=== PATIENT | male | born 1965 | race Caucasian/White ===

== ENCOUNTER 2020-09-16 02:57 | Emergency (ER) | payer OTHER, SELFPAY ==
--- NOTE | ~2020-09-16 | US_ITS ---
EXAMINATION: US ABDOMEN LIMITED CLINICAL INFORMATION: Upper quadrant pain radiating into the back. COMPARISON: None TECHNIQUE: Real-time imaging of the right upper quadrant abdominal viscera. FINDINGS: PANCREAS: Not well seen due to overlying bowel gas. LIVER: The liver is normal in size. The liver contour is normal. Minimally increased hepatic parenchymal echogenicity, which can be seen in the setting of mild steatosis. Underlying hepatocellular disease cannot be excluded. No focal hepatic lesion. There is no intrahepatic biliary duct dilatation seen. GALLBLADDER: Mildly distended and completely opacified with sludge and stones. No significant gallbladder wall thickening or pericholecystic free fluid to suggest acute cholecystitis. Negative sonographic Wallace's sign. COMMON BILE DUCT: Normal in caliber measuring 0.3 cm in diameter. RIGHT KIDNEY: Simple midpole cyst measuring 1.2 cm. No dedicated followup imaging recommended. No hydronephrosis. No renal calculi or focal parenchymal lesions. The kidney measures 11.3 cm in maximum dimension. FREE FLUID: None. US/US abdomen limited IMPRESSION: 1. Minimally increased hepatic parenchymal echogenicity, which can be seen in the setting of mild steatosis. Underlying hepatocellular disease cannot be excluded. No focal hepatic parenchymal lesion or biliary ductal dilatation. 2. Gallbladder mildly distended and completely opacified with sludge and stones. No wall thickening or pericholecystic free fluid to suggest acute cholecystitis. Negative sonographic Wallace's sign. 3. Simple right midpole renal cyst measuring 1.2 cm. No dedicated followup imaging recommended.
[2020-09-16 03:56] VITALS: BP 166/92; PULSE 58; RESP 18; TEMP 36.7; O2SAT 98; BMI 27.1
[2020-09-16 04:00] VITALS: BP 150/98; PULSE 63; RESP 18; TEMP 36.9; O2SAT 97
[2020-09-16 04:12] LABS: Glucose Urine UA NEG (NEG); Leukocyte Esterase Urine NEG (NEG); Nitrite Urine NEG (NEG); PH 5.5 (5.0-8.0); Specific Gravity - Urine >= 1.030 (1.005-1.025); Urine Blood NEG (NEG); Urine Ketones NEG (NEG); Urine Protein NEG (NEG-TRACE)
[2020-09-16 04:37] LABS: Appearance Urine CLEAR; Color Urine YELLOW
[2020-09-16 04:51] LABS: MANUAL DIFF FLAG NO
[2020-09-16 04:53] LABS: Basophils Percent Auto 0.3 % (0-2); Eosinophils Percent Auto 0.5 % (0-4); Hematocrit 40.7 % (42-52); Hemoglobin 14.2 g/dl (14.0-18.0); Imm Gran Abs Auto 0.03 X10*3/uL (0.00-0.03); Imm Gran Pct Auto 0.5 % (0.0-0.4); Lymphocytes Absolute Auto 0.8 X10*3/uL (1.2-4.9); Lymphocytes Percent Auto 13.2 % (20-40); Mean Corpuscular HGB Conc 34.9 g/dl (31.0-36.0); Mean Corpuscular Hemoglobin 31.4 pg (27.0-33.0); Monocytes Absolute Auto 0.3 X10*3/uL (0.1-1.2); Monocytes Percent Auto 4.6 % (2-11); Neutrophils Percent Auto 80.9 % (45-73); Platelet Count 103 X10*3/uL (160-400); Red Blood Count 4.52 X10*6/uL (4.60-5.80); Red Cell Distribution Width 12.6 % (11.0-16.0); White Blood Count 6.1 X10*3/uL (4.8-10.8)
[2020-09-16 05:16] LABS: Alanine Aminotransferase 13 U/L (0-40); Albumin Level 4.3 g/dL (3.5-5.0); Alkaline Phosphatase 105 U/L (39-117); Anion Gap 16 (12-20); Aspartate Amino Transferase 11 U/L (5-37); Bilirubin Total 1.1 mg/dL (0.0-1.0); Blood Urea Nitrogen 22 mg/dL (9-16); Carbon Dioxide 23 mmol/L (22-29); Chloride 103 mmol/L (96-108); Creatinine Clr Calc Pharmacy 80.1; Estimated Glomerular Filt Rate > 60; Glucose Fasting 154 mg/dL (60-99); Potassium 3.8 mmol/L (3.3-5.1); Sodium 138 mmol/L (135-145); Total Protein 6.5 g/dL (6.5-8.0)
--- NOTE | 2020-09-16 06:38 | ED_ITS ---
HPI - Abdominal Pain General Chief Complaint: Abdominal Pain Stated Complaint: Abd pain Time Seen by Provider: 09/16/20 06:38 Source: patient Mode of arrival: ambulatory Limitations: no limitations History of Present Illness HPI narrative: Starting have holiday dinner around 4pm and got RUQ pain radiating to right shoulder MD elicited complaint: abdominal pain Pertinent past history: none Onset (ago): hour(s) Pain Consistency: intermittent Location: RUQ Severity: moderate Quality: aching Radiation: back (right shoulder) Exacerbating factors: eating Relieving factors: nothing Associated symptoms: nausea Related Data Previous Rx's Medication Instructions Recorded ondansetron HCl [Zofran] 4 mg PO Q8H PRN #10 tab 09/16/20 pantoprazole [Protonix] 40 mg PO DAILY #14 tab 09/16/20 Allergies Allergy/AdvReac Type Severity Reaction Status Date / Time Penicillins [PENICILLINS] Allergy Severe Unknown Verified 09/16/20 03:13 Review of Systems Constitutional: Reports no additional constitutional complaints Eyes: Reports no additional eye complaints Denies dizziness Cardiovascular: Reports no additional cardiovascular complaints Respiratory: Reports as per HPI Gastrointestinal: Reports no additional gastrointestinal complaints Musculoskeletal: Reports no additional musculoskeletal complaints Skin/Breast: Denies rash Reports system reviewed and no additional complaints, except as documented, Denies dizziness and Denies Sensory deficit (Neuro) Psychiatric: Denies anxiety Physical Exam Vital Signs: Vital Signs: Last Vital Signs Temp 98.5 F 09/16/20 04:00 Pulse 63 09/16/20 04:00 Resp 18 09/16/20 04:00 BP 150/98 H 09/16/20 04:00 Pulse Ox 97 09/16/20 04:00 Body Mass Index 27.1 Const: General: healthy appearing Nutritional Appearance: average body habitus Orientation/consciousness: oriented to person and patient oriented x3 Limitations: no limitations HENMT: Head: Yes normal to inspection Ears: external ears normal General nose exam: Normal external nose present Mouth: Normal oral and palatal mucosa present and oropharynx normal Throat: Yes posterior oropharynx normal Eyes: General: appearance normal, both eyes and all related structures Neck: Other: supple Neck: Yes normal visual inspection Chest: Chest palpation & inspection: normal inspection of the chest Resp: Auscultation: clear to auscultation bilaterally Cardio: Jugular venous distension: no JVD Rate: regular rate Rhythm: regular rhythm Heart sounds: S1 normal heart sound present and S2 normal heart sound present GI: Other: soft abdomen with right upper quadrant with pain and guarding. Inspection: Yes normal to inspection Auscultation: normal bowel sounds : General: Yes no CVA tenderness Back/Spine/Pelvis: Back: no CVA tenderness Skin: General skin exam: no rashes or lesions noted Neuro: General: oriented to person and patient oriented x3 Cranial nerves: Yes CN's II-XII intact bilaterally Motor exam (neuro): 5/5 motor strength present throughout Sensory Exam: No Sensory deficit (Neuro) Extrem: General: Yes normal to inspection Psych: Appearance: grossly normal Course Course Course Narrative: unofficial bedside US show enlarged GB with sludge will obtain offiicial US Reevaluation(s) Reevaluation #1: Discusswed with Dr. Alarcon will send to office Time: 09:47 MDM - Abdominal Pain MDM Narrative Medical decision making narrative: bedside ultrasound showed distended GB with sludge, official US showed it completely filled with gallstones and sludge. Discussed with surgeon will dc home Differential Diagnosis Differential diagnosis: Likely abdominal pain Lab Data Result diagrams: 09/16/20 04:39 09/16/20 04:39 Labs: Lab Results 09/16/20 09/16/20 09/16/20 Range/Units 04:03 04:39 04:39 WBC 6.1 (4.8-10.8) X10*3/uL RBC 4.52 L (4.60-5.80) X10*6/uL Hgb 14.2 (14.0-18.0) g/dl Hct 40.7 L (42-52) % MCV 90.0 (80-98) fL MCH 31.4 (27.0-33.0) pg MCHC 34.9 (31.0-36.0) g/dl RDW 12.6 (11.0-16.0) % Plt Count 103 L (160-400) X10*3/uL MPV 9.0 L (9.4-12.4) fL Immature Gran % (Auto) 0.5 H (0.0-0.4) % Neut % (Auto) 80.9 H (45-73) % Lymph % (Auto) 13.2 L (20-40) % [place] % (Auto) 4.6 (2-11) % Eos % (Auto) 0.5 (0-4) % Baso % (Auto) 0.3 (0-2) % Lymph # (Auto) 0.8 L (1.2-4.9) X10*3/uL [place] # (Auto) 0.3 (0.1-1.2) X10*3/uL Eos # (Auto) 0.0 (0.0-0.4) X10*3/uL Baso # (Auto) 0.0 (0.0-0.2) X10*3/uL Abs Immat Gran (auto) 0.03 (0.00-0.03) X10*3/uL Absolute Neuts (auto) 5.0 (2.0-8.3) X10*3/uL Absolute Nucleated RBC 0.000 (0.0-0.012) X10*3/uL Nucleated RBC % (auto) 0.0 (0.0-0.2) /100WBC Sodium 138 (135-145) mmol/L Potassium 3.8 (3.3-5.1) mmol/L Chloride 103 (96-108) mmol/L Carbon Dioxide 23 (22-29) mmol/L Anion Gap 16 (12-20) BUN 22 H (9-16) mg/dL Creatinine 1.17 (0.5-1.4) mg/dL Estim Creat Clear Calc 80.1 Estimated GFR > 60 Fasting Glucose 154 H (60-99) mg/dL Calcium 9.0 (8.4-10.2) mg/dL Total Bilirubin 1.1 H (0.0-1.0) mg/dL AST 11 (5-37) U/L ALT 13 (0-40) U/L Alkaline Phosphatase 105 (39-117) U/L Total Protein 6.5 (6.5-8.0) g/dL Albumin 4.3 (3.5-5.0) g/dL Urine Color YELLOW Urine Appearance CLEAR Urine pH 5.5 (5.0-8.0) Ur Specific [place] >= 1.030 H (1.005-1.025) Urine Protein NEG (NEG-TRACE) MG/DL Urine Glucose (UA) NEG (NEG) MG/DL Urine Ketones NEG (NEG) MG/DL Urine Blood NEG (NEG) Urine Nitrite NEG (NEG) Ur Leukocyte Esterase NEG (NEG) Discharge Plan Discharge Clinical Impression: Biliary colic Patient Disposition: Home, Self-Care Instructions: Biliary Colic (ED) Prescriptions: New ondansetron HCl [Zofran] 4 mg tablet 4 mg PO Q8H PRN (Reason: nausea and vomiting) Qty: 10 RF: 0 pantoprazole [Protonix] 40 mg tablet,delayed release (DR/EC) 40 mg PO DAILY Qty: 14 RF: 0 Referrals: Reuben Tsang [Primary Care Provider] - 2 days Bruce Alarcon MD [Physician] - 2 days [facility] Past Medical History Medical History Depression GERD (gastroesophageal reflux disease) HTN (hypertension) Social History Social History Advance Directives: No Advance Directives Information Provided: No
--- NOTE | 2020-09-16 07:00 | PC.NURSE ---
received report from michael dai
[2020-09-16 10:35] LABS: Lipase 26 U/L (8-78)
== END 2020-09-16 10:37 | disposition home or self-care (01) ==
PROVIDERS: Emergency Provider Emergency Medicine; PCP Hospitalist
DX: K80.50 Calculus of bile duct without cholangitis or cholecystitis without obstruction (principal); R10.11 Right upper quadrant pain; I10 Essential (primary) hypertension; K21.9 Gastro-esophageal reflux disease without esophagitis
CPT/HCPCS: 36415; 76705; 80053; 81003; 83690; 85025; 99283

== ENCOUNTER 2020-09-18 08:27 | Outpatient (REF) | payer OTHER, SELFPAY ==
[2020-09-18 10:36] LABS: Alanine Aminotransferase 13 U/L (0-40); Albumin Level 4.3 g/dL (3.5-5.0); Alkaline Phosphatase 118 U/L (39-117); Aspartate Amino Transferase 11 U/L (5-37); Bilirubin Direct 0.6 mg/dL (0.0-0.5); Bilirubin Total 1.7 mg/dL (0.0-1.0); Total Protein 6.5 g/dL (6.5-8.0)
== END 2020-09-18 08:28 | disposition home or self-care (01) ==
LOC: HO.LAB 08:27
PROVIDERS: PCP Hospitalist; Visit Provider Surgery
DX: K80.20 Calculus of gallbladder without cholecystitis without obstruction (principal)
CPT/HCPCS: 36415; 80076

== ENCOUNTER 2020-09-20 07:09 | Outpatient (REF) | payer OTHER, SELFPAY ==
--- NOTE | ~2020-09-20 | MR_ITS ---
EXAMINATION: MR ABDOMEN WITHOUT CONTRAST CLINICAL INFORMATION: Abdominal pain COMPARISON: Previous abdominal ultrasound 09/16/2020 TECHNIQUE: MR abdomen is performed without gadolinium contrast. MRCP sequences were also performed. FINDINGS: LUNG BASES: The visualized lung bases are unremarkable. LIVER, GALLBLADDER, AND BILIARY TREE: The liver is normal in size, smooth in contour, and normal in signal. No focal hepatic lesion or biliary ductal dilatation is present. The gallbladder is distended. There are small gallstones in the gallbladder. The gallbladder wall is slightly thickened measuring 4 mm. No gallbladder wall edema or pericholecystic fluid is seen. The common bile duct is normal in size measuring 4 mm. No common bile duct stone is seen. PANCREAS: Unremarkable. The main pancreatic duct is normal. SPLEEN: The spleen is enlarged and measures 15.3 cm in length. ADRENAL GLANDS: Unremarkable. KIDNEYS AND URETERS: There are bilateral renal cortical and peripelvic cysts. The kidneys are normal in size and shape. No hydronephrosis. No perinephric stranding. GASTROINTESTINAL TRACT: No bowel obstruction. No ascites or fluid collection. ABDOMINAL WALL: No significant hernia is appreciated. LYMPH NODES: There are small retroperitoneal and small bowel mesentery lymph nodes. No enlarged lymph nodes are seen. There is no ascites. VASCULAR: Unremarkable. OSSEOUS STRUCTURES: Marrow signal normal. MR/MR MRCP IMPRESSION: Distended gallbladder with gallstones. The gallbladder wall is slightly thickened. Findings are questionable for acute cholecystitis. This could be further evaluated with HIDA scan if clinically indicated. Normal caliber intrahepatic and extrahepatic bile ducts. No common bile duct stone seen. Enlarged spleen. Bilateral renal cysts.
== END 2020-09-20 07:10 | disposition home or self-care (01) ==
LOC: HO.MRI 07:09
PROVIDERS: Visit Provider Surgery
DX: R79.89 Other specified abnormal findings of blood chemistry (principal)
CPT/HCPCS: 74181

== ENCOUNTER 2020-09-24 10:37 | Day surgery (SDC) | payer OTHER, SELFPAY ==
--- NOTE | 2020-09-20 14:24 | HO.ANESPROP2 ---
Documented by User: Sue Ortiz 09/20/20 14:25 HPI - Anesthesia Eval Consult details Narrative: 54yo M for Cholecystectomy Laparoscopic [facility] Active Problems Active Problems: All Active Problems (Updated 09/18/20 @ 15:30 by Bruce Alarcon MD) Elevated liver function tests (Acute) Gallstones (Acute) Past Medical History Medical History Depression Elevated liver function tests Gallstones GERD (gastroesophageal reflux disease) HTN (hypertension) Social History Social History Alcohol intake: current Alcohol intake frequency: holidays/special occasions only Smoking Status: Never smoker Use of substances other than those prescribed or required for medical reasons: No Advance Directives: No Advance Directives Information Provided: Yes Meds Allergies Allergy/AdvReac Type Severity Reaction Status Date / Time Penicillins [PENICILLINS] Allergy Severe Unknown Verified 09/24/20 10:42 Home Medications Medication Instructions Recorded Confirmed Last Taken Type duloxetine 60 mg capsule,delayed 60 mg PO QAM 09/18/20 09/18/20 Unknown History release lisinopril 10 1 tab PO DAILY 09/18/20 09/18/20 Unknown History mg-hydrochlorothiazide 12.5 mg tablet Exam Exam Date and Time: September 20, [id number] Pertinent Lab Results Pertinent Lab Results: Laboratory Tests 09/16/20 09/16/20 04:39 04:39 WBC 6.1 Hgb 14.2 Hct 40.7 L Plt Count 103 L Sodium 138 Potassium 3.8 Chloride 103 Carbon Dioxide 23 BUN 22 H Creatinine 1.17 Assessment and Plan Assessment Anesthesia Assessment: Chart Reviewed Documented by User: Emiliana Emmanuel 09/24/20 12:10 [facility] Past Medical History Medical History Depression Elevated liver function tests Gallstones GERD (gastroesophageal reflux disease) HTN (hypertension) Social History Social History Alcohol intake: current Alcohol intake frequency: holidays/special occasions only Smoking Status: Never smoker Use of substances other than those prescribed or required for medical reasons: No Advance Directives: No Advance Directives Information Provided: Yes Meds Allergies Allergy/AdvReac Type Severity Reaction Status Date / Time Penicillins [PENICILLINS] Allergy Severe Unknown Verified 09/24/20 10:42 Home Medications Medication Instructions Recorded Confirmed Last Taken Type duloxetine 60 mg capsule,delayed 60 mg PO QAM 09/18/20 09/18/20 Unknown History release lisinopril 10 1 tab PO DAILY 09/18/20 09/18/20 Unknown History mg-hydrochlorothiazide 12.5 mg tablet Exam Airway Mallampati Class: II TM Dist: >3cm Neck ROM: Full Assessment and Plan Assessment Anesthesia Assessment: Anesthesia Plan Discussed and Chart Reviewed Final Anesthetic Review NPO: Yes ASA Class: II Final Preanesthetic Review: No Changes in Pt Med Stat, Meds/Allgs Chart Reviewed, Consent Obtained/Reviewed and Anes Risks/Benef Reviewed Patient Risk: Low Procedure Risk: Low Assessment/Block/Sedation in SS: Assess/Block/Sedation-SS Anesthetic Plan Anesthetic Plan: GA Disposition: Standard PACU
[2020-09-24] VITALS (12 sets, daily range): BP systolic 117–143; BP diastolic 77–90; PULSE 55–69; RESP 16–20; TEMP 36.4; O2SAT 93–98; BMI 26.8
[2020-09-24 11:51] LABS: Alanine Aminotransferase 15 U/L (0-40); Albumin Level 4.1 g/dL (3.5-5.0); Alkaline Phosphatase 109 U/L (39-117); Aspartate Amino Transferase 11 U/L (5-37); Bilirubin Direct 0.5 mg/dL (0.0-0.5); Bilirubin Total 1.7 mg/dL (0.0-1.0); Total Protein 6.2 g/dL (6.5-8.0)
[2020-09-24] MEDS: Acetaminophen 325 MG TABLET 650 MG PO (11:55)
[2020-09-24] MEDS: Lactated Ringers 1,000 ML 100 ML IVCONT (11:57)
--- NOTE | 2020-09-24 12:50 | MHC.SHP ---
Pre-Procedural Eval Section B Chief Complaint: Gallstones Allergies: Allergies Allergy/AdvReac Type Severity Reaction Status Date / Time Penicillins [PENICILLINS] Allergy Severe Unknown Verified 09/24/20 10:42 Plan I have reviewed the history and physical and performed a pertinent physical examination on my patient. No changes have occurred unless specified.
--- NOTE | 2020-09-24 14:51 | W.PM.OPN ---
Operative Note Operative Note Date of Service: 09/24/20 Narrative: Preop diagnosis: Symptomatic gallstones Postop diagnosis: Acute calculous cholecystitis with severe inflammation Procedure: Laparoscopic cholecystectomy, with placement of VALENCIA drain to the subhepatic space Surgeon: Bruce Alarcon MD The patient is a 54-year-old male who has been having right upper quadrant pain on and off for about 2 weeks now. He actually went to the emergency room and he had an ultrasound which did not show any cholecystitis although he did have gallstones. I saw him in the office and scheduled him for cholecystectomy because of his persistent symptoms. He had actually stated that he continued have pain even at home. He was therefore scheduled urgently because of his pain issues. His bilirubin was mildly elevated so I had ordered for a preop MRCP and this was reviewed with radiologist. There did not seem to be any evidence of CBD obstruction or CBD stone. He understood the technique of laparoscopic cholecystectomy and he was aware of the risks, benefits, and alternatives. He was brought to the operating room and placed supine on the table under general anesthesia via endotracheal tube. The abdomen was prepped and draped usual sterile fashion. A surgical time-out was done. The patient received Cefotan 2 g IV preoperatively A short supraumbilical incision was made on the skin using a blade 15. This was carried down through the full-thickness of the skin and subcutaneous fat down to the fascia. The fascia was incised. The peritoneum was entered. Through this incision a João port was introduced. Pneumoperitoneum was introduced to a pressure of 15 mm hg. From here on the rest of the procedure was done under vision with the laparoscope through the João port. With laparoscopic visualization, I inserted a 5/12 mm port through a small incision in the epigastric area below the subcostal margin. Two 5 mm ports were introduced through small incisions below the subcostal margin along the anterior axillary line and the midclavicular line. Graspers were placed through these working ports. The patient was placed in head-up and [id number] position. The gallbladder was immediately seen. This was noted to be very distended, inflamed and erythematous, consistent with acute cholecystitis. The gallbladder wall appeared to be obviously thickened. We were unable to therefore apply a grasper at the fundus. I had to decompress the gallbladder using and aspirating needle through the 5 mm port. Once the gallbladder was decompressed, I was able to eventually apply a grasper towards the fundus. This was used to retract the gallbladder cephalad. The gallbladder was still distended and erythematous and I had difficulty visualizing the neck of the gallbladder as retraction of the pouch was difficult. I therefore had to switch to a 10 mm 30 degree angled scope to allow as better visualization of the area of the neck. I proceeded to then gently dissect the peritoneum off of the neck of the gallbladder and by doing so I was able to achieve more retraction cephalad. I was also therefore able to apply a grasper at the pouch. This was used to retract the gallbladder laterally. With the gallbladder being retracted in a lateral and cephalad fashion, I was able to then gently dissect the peritoneum off of the neck of the gallbladder towards the area of the cystic duct. We continued this manner of dissection, carefully stripping off the rest of the thickened and inflamed peritoneum. By doing so I was able to eventually achieve a critical view of hepatocystic triangle. The confluence of the neck of the gallbladder with the cystic duct was also confirmed. I gently dissected the cystic duct circumferentially. I was able to see the cystic artery alongside this. There were no other tubular structures in the area of the triangle. I therefore applied clips on the cystic duct very close to the neck, with 2 clips being applied distally. The cystic duct was transected between clips. I also applied clips on the cystic artery with 2 clips being applied distally the cystic artery was transected between clips There was note of lot of inflammatory changes in the area of the neck as well as the hilum. I carefully dissected the rest of the inflamed fatty areolar tissue from this. There was note of significant and persistent oozing from both the gallbladder wall as well as the liver bed as we dissected gently. I was able to eventually reach the area of the interface of the gallbladder and the liver bed. I then used electrocautery to gently incise the thickened and inflamed peritoneum. I divided along this plane with a combination of blunt dissection and electrocautery to separate the gallbladder wall from the liver bed and again there was note of severe inflammatory changes with the wall of the gallbladder being markedly inflamed so we had continued oozing throughout the dissection from the liver bed . We therefore had to periodically suction out and irrigate to allow visualization. This part of the procedure took an extended period of time because of the persistent oozing from the liver bed as well as the gallbladder. We even had to apply some clips on some thin filmy adhesions because of oozing. We continued to gently separate the gallbladder wall from the liver bed all the way to the fundus until the entire gallbladder was completely . This was retrieved through an endobag through the umbilical incision. We also had to lengthen the incision a little bit to allow passage of the markedly enlarged gallbladder.I reinserted all ports and reinsufflated. Again there was note of some persistent oozing from the liver bed so I had to apply Surgicel on this. Furthermore because of the severe inflammation as well earlier, I decided leave a VALENCIA drain in the subhepatic space. This drain was passed through the epigastric port and came out through the lateral-most 5 mm port. This drain was secured to the skin with 3-0 sutures. I then reinserted the laparoscope and examined all 4 quadrants. There was no evidence of any bowel injury. We continued to keep observing the subhepatic space and this appeared to be hemostatic after placement of the Surgicel. The VALENCIA drain also appeared to be in good position underneath the liver. We observed the subhepatic space and there was no evidence of any persistent bleeding or any bile leak Once we had examined all 4 quadrants, I proceeded to then desufflate through the port sites. The umbilical port was removed last. The fascia of the umbilical incision was closed with figure-eight Dexon 0 stitch making sure that there was no bowel loops trapped within the sutures Skin closure was achieved on all incisions using Dexon 4-0 subcuticular sutures. Steri-Strips and dressings were applied. The procedure was then completed. The patient tolerated the procedure well. There were no immediate complications. Initial and final counts of sponges and instruments were correct. Estimated blood loss was about 150 cc. The patient was extubated without difficulty in the operating room and transferred to the recovery room with stable vital signs.
--- NOTE | 2020-09-24 15:04 | PM.OP ---
Brief Operative Note Date of Service: 09/24/20 Pre-op diagnosis: Symptomatic gallstones Post-op diagnosis: other (Acute cholecystitis) Procedure: Laparoscopic cholecystectomy Surgeon: Bruce Alarcon MD Anesthesia: GETA Estimated blood loss (mL): 150 Pathology: other (Gallbladder) Condition: stable Disposition: PACU
[2020-09-24 15:28] LABS: Glucose, Whole Blood 213 mg/dL (60-115)
[2020-09-24] MEDS: ondansetron HCL 4 MG/2 ML VIAL IVPUSH (15:37)
[2020-09-24] MEDS: oxyCODONE HCl Immed Release 5 MG TABLET PO (16:21)
--- NOTE | 2020-09-24 16:31 | PM.EVENT ---
Event Note Date of Service: 09/24/20 Event Note: seen postop - uner delonte leydi GB was severely inflamed VALENCIA drain left in place currently with dark bloody output stable VS abd soft he wants to go home dw his fiance over the phone instructed on care dw PACU - allow patient to be more comfortable before discharging home
== END 2020-09-24 17:50 | disposition home or self-care (01) ==
PROVIDERS: PCP Hospitalist; Visit Provider Surgery
PROC: 0FT44ZZ Resection of Gallbladder, Percutaneous Endoscopic Approach (ICD-10-PCS; CPT 47562; principal; 2020-09-24 11:50)
DX: K80.00 Calculus of gallbladder with acute cholecystitis without obstruction (principal); K82.A1 Gangrene of gallbladder in cholecystitis; I10 Essential (primary) hypertension; Z79.899 Other long term (current) drug therapy; Z88.0 Allergy status to penicillin
CPT/HCPCS: 47562; 36415; 80076; 82947; 88304; J0131; J1100; J1170; J2250; J2405; J3010

== ENCOUNTER → 2020-09-26 13:12 | Outpatient (BNVA) | payer OTHER, SELFPAY | PROVIDERS: PCP Hospitalist; Visit Provider Surgery ==

== ENCOUNTER → 2020-10-02 09:09 | Outpatient (BNVA) | payer OTHER, SELFPAY | PROVIDERS: PCP Hospitalist; Visit Provider Surgery ==